=== PATIENT | female | born 1980 | race Asian ===

== ENCOUNTER → 2018-12-04 | Outpatient (CLI) | payer BC ==
[~2018-12-04] MED LIST: GADOBENATE DIMEGLUMINE 1 ML IV ONE; IOPAMIDOL 300 MG/ML 15ML VIAL IT ONE; LIDOCAINE HCL 1% LOCAL INJ 20 ML VIAL ONE
--- NOTE | 2018-12-04 13:28 | Diagnostic Imaging Report ---
TECHNIQUE: Magnetic resonance imaging of the LEFT SHOULDER was performed after intra-articular injection of contrast. COMPARISON: None available. HISTORY: Pain FINDINGS: MUSCLES AND TENDONS: Rotator Cuff: Tendons: Supraspinatus: Intact Infraspinatus: Intact Teres Minor: Intact Subscapularis: Intact Muscles: No focal muscle atrophy. Biceps Tendon: The long head of the biceps tendon is intact and within the intertubercular groove. GLENOHUMERAL JOINT: Glenoid Labrum: No displaced tear. Articular Cartilage: No focal defect. AC JOINT AND ACROMION: No hypertrophic degenerative changes of the acromioclavicular joint. The acromion is unremarkable. Bone: No focal or infiltrative bone marrow replacing abnormality. No acute fracture. Soft Tissues: Otherwise, the soft tissues appear unremarkable. IMPRESSION: Intact rotator cuff and labrum Signed by: Dr. Chencho Lester M.D. on 12/04/2018 1:24 PM
--- NOTE | 2018-12-05 07:56 | Diagnostic Imaging Report ---
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 The patient was placed in the supine position on the fluoroscopic table with the left shoulder externally rotated. The skin overlying the superomedial humeral head was marked and 1% lidocaine was administered for local anesthesia. Then under intermittent fluoroscopic guidance, a 22-gauge needle was advanced to the superomedial surface of the humeral head. Subsequently, a mixture of dilute Magnevist contrast, Isovue 300 and 1% lidocaine was slowly injected into the joint (dosing above) with intermittent fluoroscopy. Images were obtained in internal and external rotation in neutral and abduction positions. The needle was removed. The patient tolerated the procedure well without immediate complication. FINDINGS: Intra-articular injection of contrast demonstrated expected contrast distribution with no extravasation of contrast outside the joint space or anatomic recesses. IMPRESSION: Left shoulder arthrogram with fluoroscopic guidance as above. No evidence of full-thickness rotator cuff tear. Plan for subsequent MRI. Signed by: Dr. Rudy Diaz MD on 12/05/2018 7:52 AM
== END ==
LOC: DX 10:34
PROVIDERS: ATTEND Specialist
DX: S43.432D Superior glenoid labrum lesion of left shoulder, subsequent encounter (principal)
CPT/HCPCS: 23350; 73222; 77002; A9577; J2001; Q9967

== ENCOUNTER → 2018-12-26 | Day surgery (SDC) | payer BC ==
[~2018-12-26] MED LIST changes: +FENTANYL CITRATE/PF 100MCG/2 ML INJ ONE; -GADOBENATE DIMEGLUMINE 1 ML IV ONE; +HYOSCYAMINE 0.125 MG TAB ONE; -IOPAMIDOL 300 MG/ML 15ML VIAL IT ONE; -LIDOCAINE HCL 1% LOCAL INJ 20 ML VIAL ONE; +MIDAZOLAM HCL 2 MG/2 ML VIAL ONE; +PROPOFOL IV EMULSION 10 MG/ML 20 ML VIAL ONE
--- OUTSIDE RECORDS SUMMARY | 2018-12-26 12:00 | XMS REPORT ---
Author Author [facility] Address Unknown Phone Unavailable Care Team Providers Care Threader Name Role Phone ABDIRASHID PARRY Unavailable Unavailable Problems This patient has no known problems. Allergies, Adverse Reactions, Alerts This patient has no known allergies or adverse reactions. Medications This patient has no known medications. Results Test Description Test Time Test Comments Text Results Atomic Results Result Comments MRI SHOULDER LEFT W 2018-12-04 13:17:00 [facility] [address] [address] Patient Name: OLAMIDE HARRIS MR #: [id number] : 1980 Age/Sex: 38/F Req #: [id number] [facility] Physician: Ordered by: ABDIRASHID PARRY MD Report #: [id number] Location: DX Room/Bed: Procedure: [id number] MRI/MRI SHOULDER LEFT W Exam Date: Exam Time: REPORT STATUS: Signed TECHNIQUE: Magnetic resonance imaging of the LEFT SHOULDER was perf ormed after intra-articular injection of contrast. COMPARISON: None available. HISTORY: Pain FINDINGS: MUSCLES AND TENDONS: Rotator Cuff: Tendons: Supraspinatus: Intact Infraspinatus: Intact Teres Minor: Intact Subscapularis: Intact Muscles: No focal muscle atrophy. Biceps Tendon: The long head of the biceps tendon is intact and within the intertubercular groove. GLENOHUMERAL JOINT: Glenoid Labrum: No displaced tear. Articular Cartilage: No focal defect. AC JOINT AND ACROMION: No hypertrophic degenerative changes of the acromioclavicular joint. The acromion is unremarkable. Bone: No focal or infiltrative bone marrow replacing abnormality. No acute fracture. Soft Tissues: Otherwise, the soft tissues appear unremarkable. IMPRESSION: Intact rotator cuff and labrum Signed by: Dr. Yousuf rader M.D. on 12/04/2018 1:24 PM Dictated By: YOUSUF ORTEGA MD 1324 Transcribed By: TASH on 12/04/18 1324 COPY TO: ABDIRASHID PARRY MD FLURO GUIDE NEEDLE PLCMNT/INJ 2018-12-04 13:03:00 [address] [address] Patient Name: OLAMIDE HARRIS MR #: [id number] : 1980 Age/Sex: 38/F Req #: [id number] Adm Physician: Ordered by: ABDIRASHID PARRY MD Report #: [id number] Location: DX Room/Bed: Procedure: [id number] IR/FLURO GUIDE NEEDLE PLCMNT/INJ Exam Date: 12/04/18 Exam Time: 1130 REPORT STATUS: Signed Procedure: Left shoulder arthrogram labor operator: Dr. Jamie Fernandes Pre-operative diagnosis: Left shoulder pain Post-operative diagnosis: Left shoulder pain Medications: Lidocaine 1% for local anesthesia, Intra-articular: dilute Magnevist contrast 10 cc (0.1 cc of Magnevist in 10 cc of normal saline), 3 cc intra-articular Isovue 300M, and 2 cc of 1% lidocaine per [facility] records Fluoroscopy time: 0.6 minutes; Dose area product: 0.15 cGycm2; Cumulative dose: 0.59 mGy Estimated blood loss: None Specimens: None Implants: None DISCUSSION: Informed consent was obtained and documented in the medical record after discussion of risks and benefits. The patient was placed in the supine position on the fluoroscopic table with the left shoulder externally rotated. The skin overlying the superomedial humeral head was marked and 1% lidocaine was administered for local anesthesia. Then under intermittent fluoroscopic guidance, a 22-gauge needle was advanced to the superomedial surface of the humeral head. Subsequently, a mixture of dilute Magnevist contrast, Isovue 300 and 1% lidocaine was slowly injected into the joint (dosing above) with intermittent fluoroscopy. Images were obtained in internal and external rotation in neutral and abduction positions. The needle was removed. The patient tolerated the procedure well without immediate complication. FINDINGS: Intra-articular injection of contrast demonstrated expected contrast distribution with no extravasation of contrast outside the joint space or anatomic recesses. IMPRESSION: Left shoulder arthrogram with fluoroscopic guidance as above. No evidence of full-thickness rotator cuff tear. Plan for subsequent MRI. Signed by: Dr. Jamie Fernandes MD on 12/05/2018 7:52 AM Dictated By: JAMIE FERNANDES MD 1 Transcribed By: TASH on 12/05/18751 COPY TO: ABDIRASHID PARRY MD INJECTION ARTHROGRAM SHOULDER 2018-12-04 13:03:00 [address] [address] Patient Name: OLAMIDE HARRIS MR #: [id number] : 1980 Age/Sex: 38/F Req #: [id number] Adm Physician: Ordered by: ABDIRASHID PARRY MD Report #: [id number] Location: DX Room/Bed: Procedure: [id number] IR/INJECTION ARTHROGRAM SHOULDER Exam Date: 12/04/18 Exam Time: 1130 REPORT STATUS: Signed Procedure: Left shoulder arthrogram labor operator: Dr. Jamie Fernandes Pre-operative diagnosis: Left shoulder pain Post-operative diagnosis: Left shoulder pain Medications: Lidocaine 1% for local anesthesia, Intra-articular: dilute Magnevist contrast 10 cc (0.1 cc of Magnevist in 10 cc of normal saline), 3 cc intra-articular Isovue 300M, and 2 cc of 1% lidocaine per [facility] records Fluoroscopy time: 0.6 minutes; Dose area product: 0.15 cGycm2; Cumulative dose: 0.59 mGy Estimated blood loss: None Specimens: None Implants: None DISCUSSION: Informed consent was obtained and documented in the medical record after discussion of risks and benefits. The patient was placed in the supine position on the fluoroscopic table with the left shoulder externally rotated. The skin overlying the superomedial humeral head was marked and 1% lidocaine was administered for local anesthesia. Then under intermittent fluoroscopic guidance, a 22-gauge needle was advanced to the superomedial surface of the humeral head. Subsequently, a mixture of dilute Magnevist contrast, Isovue 300 and 1% lidocaine was slowly injected into the joint (dosing above) with intermittent fluoroscopy. Images were obtained in internal and external rotation in neutral and abduction positions. The needle was removed. The patient tolerated the procedure well without immediate complication. FINDINGS: Intra-articular injection of contrast demonstrated expected contrast distribution with no extravasation of contrast outside the joint space or anatomic recesses.
[2018-12-26 15:10] VITALS: BP 109/60
--- NOTE | 2018-12-26 15:44 | Operative Report ---
DATE OF PROCEDURE: 12/26/2018 SURGEON: Renaldo Luna MD PROCEDURE: Esophagogastroduodenoscopy with biopsies and colonoscopy with polypectomy and biopsies. INDICATIONS FOR EGD: Dyspepsia. INDICATIONS FOR COLONOSCOPY: Surveillance colonoscopy, personal history of colon polyps, history of bright red blood per rectum. MEDICATION: The patient was done under MAC, please see anesthesiologist's note. PROCEDURE IN DETAIL: With the patient in left lateral decubitus position, flexible fiberoptic Olympus gastroscope was introduced into the esophagus under direct visualization without any difficulty. There was some patchy erythema noted in distal esophagus. The scope was then advanced with ease into the stomach and mucosa overlying the antrum revealed some diffuse erythema low-grade to moderate edema and biopsies were obtained and sent to stain for H pylori. The pylorus was of normal contour and shape, it was intubated with ease, and the scope was advanced all the way to the second portion of the duodenum. The scope was then withdrawn slowly and mucosa overlying the proximal second portion and the duodenal bulb appeared to be within normal limits. The scope was then withdrawn back into the stomach and retroflexed and mucosa overlying the fundus and the cardia appeared to be within normal limits. The scope was then straightened out, it was subsequently withdrawn. The patient tolerated procedure well. IMPRESSION: 1. Distal esophagitis, mild. 2. Gastritis, biopsied, biopsies sent to stain for H pylori. PLAN: Follow up histology. Initiate Protonix 40 mg one p.o. q.a.m. a.c. PROCEDURE IN DETAIL: The patient was then turned around and after adequate lubrication of the anal canal, flexible fiberoptic Olympus colonoscope was inserted into the rectum with ease and advanced all the way to the cecum. Mucosa overlying the cecum overall appeared to be within normal limits. One polyp was snared and site was hemoclipped and one polyp was removed per the cold biopsy forceps from the cecum. The ascending and transverse and descending appeared to be within normal limits. There were some mild patchy inflammatory changes noted in the sigmoid colon and biopsies were obtained. One polyp was hot biopsied from the rectum. The scope was then retroflexed into the distal rectum and moderate-sized internal hemorrhoids were noted, none of which was actively bleeding. The scope was then straightened out, it was subsequently withdrawn. The patient tolerated procedure well. IMPRESSION: 1. Cecal polyps, one snared and site hemoclipped and one removed per the cold biopsy forceps. 2. Mild segmental colitis, sigmoid colon. 3. Rectal polyp, hot biopsied. 4. Internal hemorrhoids, none actively bleeding. PLAN: Follow up histology. Initiate high-fiber, low-fat diet. Initiate high-fiber supplement. Start VSL#3 one p.o. daily. The patient might benefit from a followup colonoscopy in 3 to 5 years. Renaldo Luna MD [facility] [place] /[id number] cc: Micha Arredondo MD
== END | disposition home or self-care (01) ==
LOC: OR 11:57
PROVIDERS: ATTEND Internal Medicine Gastroenterology
DX: K20.9 Esophagitis, unspecified (principal); D12.0 Benign neoplasm of cecum; K62.1 Rectal polyp; K29.60 Other gastritis without bleeding; K29.50 Unspecified chronic gastritis without bleeding; K50.10 Crohn's disease of large intestine without complications; K64.8 Other hemorrhoids
CPT/HCPCS: 43239; 45380; 45384; 45385; 81025; J2250; J2704; 45378; J3010

== ENCOUNTER → 2022-09-06 | Day surgery (SDC) | payer BC ==
[~2022-09-06] MED LIST changes: +DRAMAMINE50 MG PO; -HYOSCYAMINE 0.125 MG TAB ONE; +LIDOCAINE HCL 2% LOCAL INJ 5 ML SDV VIAL INJ ONE; +TYLENOL EXTRA500 MG PO
[2022-09-06 13:30] VITALS: BP 112/71
== END | disposition home or self-care (01) ==
LOC: OR 10:26
PROVIDERS: ATTEND Internal Medicine Gastroenterology
DX: K64.4 Residual hemorrhoidal skin tags (principal); K63.5 Polyp of colon; K29.60 Other gastritis without bleeding; K20.90 Esophagitis, unspecified without bleeding; K21.9 Gastro-esophageal reflux disease without esophagitis; K59.00 Constipation, unspecified; K62.5 Hemorrhage of anus and rectum; K62.89 Other specified diseases of anus and rectum; K64.8 Other hemorrhoids; Z71.3 Dietary counseling and surveillance; Z68.26 Body mass index [BMI] 26.0-26.9, adult; Z86.16 Personal history of COVID-19
CPT/HCPCS: 43239; 45380; 81025; C9113; J2001; J2250; J2704; J3010; 45378

== ENCOUNTER → 2025-01-14 | Day surgery (SDC) | payer BC ==
[2025-01-14] MEDS: LACTATED RINGER'S 1,000 ML ONE (06:18)
[2025-01-14 08:24] VITALS: TEMP 98
[2025-01-14 08:50] VITALS: BP 108/78; PULSE 85; RESP 15; O2SAT 99
== END | disposition home or self-care (01) ==
LOC: OR 06:09
PROVIDERS: ATTEND Internal Medicine Gastroenterology
DX: K29.50 Unspecified chronic gastritis without bleeding (principal); Z86.0100 Personal history of colon polyps, unspecified; K20.90 Esophagitis, unspecified without bleeding; K57.30 Diverticulosis of large intestine without perforation or abscess without bleeding; K21.9 Gastro-esophageal reflux disease without esophagitis; K62.5 Hemorrhage of anus and rectum; K64.8 Other hemorrhoids; F41.9 Anxiety disorder, unspecified
CPT/HCPCS: 43239; 45378; 81025; J2003; J2250; J2470; J2704; J3010; J7121